=== PATIENT | male | born 1985 | race Asian ===

== ENCOUNTER 2017-08-05 13:38 | Emergency (ER) | payer OTHER ==
[~2017-08-05] VITALS: Ht 152.4 cm; Wt 55.0 kg
[2017-08-05] MEDS ORDERED: LEVETIRACETAM 1,000 MG in SODIUM CHLORIDE 0.9% 100 ML IV ONE (15:00)
[2017-08-05 15:34] LABS: BASOPHILS % 0.2 % (0.0-2.0); EOSINOPHILS % 0.3 % (0.0-5.0); HEMATOCRIT. 48.8 % (42.0-52.0); HEMOGLOBIN. 16.5 g/dL (14.0-18.0); LYMPHOCYTES % 9.9 % (20.0-50.0); MEAN CORPUSCULAR HEMOGLOBIN 30.1 pg (28.0-32.0); MEAN CORPUSCULAR VOLUME 89.1 fL (80.0-94.0); MONOCYTES % 4.9 % (2.0-8.0); NEUTROPHILS % 84.7 % (40.0-76.0); PLATELET 225 x1000/uL (130-400); RED BLOOD CELL COUNT 5.47 mill/uL (4.7-6.1); RED CELL DISTRIBUTION WIDTH 12.8 % (11.6-14.6)
[2017-08-05 15:41] LABS: PROTHROMBIN TIME 10.3 sec (9.4-11.6)
[2017-08-05 15:42] LABS: CARBON DIOXIDE 27 mEq/L (21-32); CHLORIDE 105 mEq/L (98-107)
[2017-08-05 15:46] VITALS: BP 111/70
[2017-08-05 15:49] LABS: CLARITY URINE CLEAR (CLEAR); COLOR URINE YELLOW (YELLOW); GLUCOSE URINE NEGATIVE (NEGATIVE); KETONES URINE NEGATIVE (NEGATIVE); LEUKOCYTE ESTERASE URINE NEGATIVE (NEGATIVE); NITRITE URINE NEGATIVE (NEGATIVE); OCCULT BLOOD URINE 1+ (NEGATIVE); PROTEIN URINE 1+ (NEGATIVE); SPECIFIC GRAVITY URINE 1.021 (1.005-1.030); UROBILINOGEN URINE 0.2 E.U./dL (0.2-1.0)
== END 2017-08-05 17:08 | disposition home or self-care (01) ==
LOC: ER 13:38
DX: R56.9 Unspecified convulsions (principal); N28.9 Disorder of kidney and ureter, unspecified
CPT/HCPCS: 36415; 80053; 81001; 83605; 85025; 85610; 87040; 96365; 99284; J1953; J7050

== ENCOUNTER 2017-11-19 09:45 | Emergency (ER) | payer OTHER ==
[~2017-11-19] VITALS: Ht 165.1 cm; Wt 51.0 kg
[2017-11-19] MEDS ORDERED: LEVETIRACETAM 500MG TABLET PO ONE (10:45)
[2017-11-19 11:31] VITALS: BP 116/79
== END 2017-11-19 11:31 | disposition home or self-care (01) ==
LOC: ER 09:45
DX: G40.409 Other generalized epilepsy and epileptic syndromes, not intractable, without status epilepticus (principal); Z91.14 Patient's other noncompliance with medication regimen
CPT/HCPCS: 99284; Z7610

== ENCOUNTER 2017-12-30 15:24 | Emergency (ER) | payer OTHER ==
[~2017-12-30] VITALS: Ht 167.6 cm; Wt 60.0 kg
[2017-12-30] MEDS ORDERED: LEVETIRACETAM 1000MG/100ML 100 ML IV ONE (15:45)
[2017-12-30 16:04] LABS: CHLORIDE 103 mEq/L (98-107)
[2017-12-30 16:06] LABS: BASOPHILS % 0.2 % (0.0-2.0); EOSINOPHILS % 2.5 % (0.0-5.0); HEMATOCRIT. 49.7 % (42.0-52.0); HEMOGLOBIN. 16.2 g/dL (14.0-18.0); LYMPHOCYTES % 33.8 % (20.0-50.0); MEAN CORPUSCULAR HEMOGLOBIN 30.6 pg (28.0-32.0); MEAN CORPUSCULAR VOLUME 93.8 fL (80.0-94.0); MEAN PLATELET VOLUME 7.5 fl (7.4-10.4); MONOCYTES % 4.9 % (2.0-8.0); NEUTROPHILS % 58.6 % (40.0-76.0); PLATELET 262 x1000/uL (130-400)
[2017-12-30 16:10] LABS: CARBON DIOXIDE 22 mEq/L (21-32); ETHANOL BLOOD < 10 mg/dL
[2017-12-30 16:55] VITALS: BP 108/66
[2017-12-30 17:22] LABS: *AMPHETAMINES SCREEN URINE NEGATIVE (NEGATIVE); *BARBITURATES SCREEN URINE NEGATIVE (NEGATIVE); *BENZODIAZEPINES SCREEN URINE NEGATIVE (NEGATIVE); *COCAINE SCREEN URINE NEGATIVE (NEGATIVE); CANNABINOID URINE SCREEN NEGATIVE (NEGATIVE); METHADONE URINE SCREEN NEGATIVE (NEGATIVE); OPIATES URINE SCREEN NEGATIVE (NEGATIVE); PHENCYCLIDINE URINE SCREEN NEGATIVE (NEGATIVE)
[2017-12-30 17:29] LABS: CLARITY URINE CLEAR (CLEAR); COLOR URINE YELLOW (YELLOW); PH URINE 5.5 (4.5-8.0)
[2017-12-30 17:30] LABS: KETONES URINE NEGATIVE (NEGATIVE); LEUKOCYTE ESTERASE URINE NEGATIVE (NEGATIVE); NITRITE URINE NEGATIVE (NEGATIVE); OCCULT BLOOD URINE TRACE (NEGATIVE); PROTEIN URINE TRACE (NEGATIVE); UROBILINOGEN URINE 0.2 E.U./dL (0.2-1.0)
== END 2017-12-30 17:40 | disposition home or self-care (01) ==
LOC: ER 15:41
DX: G40.909 Epilepsy, unspecified, not intractable, without status epilepticus (principal)
CPT/HCPCS: 36415; 80053; 80305; 81001; 85025; 96365; 99284; G0482; J1953

== ENCOUNTER 2025-03-28 19:14 | Emergency (ER) | payer OTHER ==
[~2025-03-28] VITALS: Ht 172.7 cm; Wt 79.0 kg
[~2025-03-28 19:14] MED LIST: BICT1TAB PO; ESLI800T MT; LEVE100023 PO; LEVE500T19 PO; PROP10TA10 PO
[2025-03-28 19:32] VITALS: BP 134/85; PULSE 121; RESP 16; TEMP 36.7; O2SAT 98
== END 2025-03-28 20:31 | disposition home or self-care (01) ==
LOC: ER 19:14
DX: G40.909 Epilepsy, unspecified, not intractable, without status epilepticus (principal); Z79.899 Other long term (current) drug therapy
CPT/HCPCS: 99283